=== PATIENT | male | born 1945 | race Caucasian/White ===

== ENCOUNTER 2018-12-15 00:57 | Emergency (ER) | payer OTHER ==
[~2018-12-15] VITALS: Ht 180.3 cm; Wt 104.3 kg
[~2018-12-15 00:57] MED LIST: ATENOLOL50 MG; CARVEDILOL25 MG PO; COZAAR100 MG PO; HYZAAR 50-12.1 UDTAB; METFORMIN HCL500 MG PO; ZOCOR40 MG PO
[2018-12-15] MEDS ORDERED: INTESTINEX680 M1 PO (04:39)
[2018-12-15] MEDS ORDERED: AMOX-CLAV 875-1 EACH PO (04:39)
[2018-12-15] MEDS ORDERED: ORPHENADRINE C100 MG PO (04:39)
[2018-12-15] MEDS ORDERED: DICLOFENAC SODI50 MG PO (04:39)
== END 2018-12-15 06:51 | disposition home or self-care (01) ==
LOC: ER 00:57
DX: S83.8X2A Sprain of other specified parts of left knee, initial encounter (principal); S00.511A Abrasion of lip, initial encounter; S60.511A Abrasion of right hand, initial encounter; W01.198A Fall on same level from slipping, tripping and stumbling with subsequent striking against other object, initial encounter; Y93.89 Activity, other specified; Y92.89 Other specified places as the place of occurrence of the external cause; Y99.8 Other external cause status